=== PATIENT | male | born 1990 | race Caucasian/White ===

== ENCOUNTER → 2016-10-21 | Emergency (ER) | payer BC, OTHER ==
[~2016-10-21] VITALS: Ht 185.4 cm; Wt 97.5 kg
[~2016-10-21] MED LIST: ALPRAZolam 0.25 MG (XANAX) TAB PO ONE; IOHEXOL 350 MG/ML 150 ML (OMNIPAQUE 350) VIAL IV ONE; LAMOTRIGINE; NS 100 ML (IVPB) BAG IV ONE; NS IV 1000 ML 1,000 ML IV ONE
--- NOTE | 2016-10-21 10:22 | ED General ---
General Chief Complaint: General Problems/Pain Stated Complaint: SOA Source of Information: Patient Exam Limitations: No Limitations History of Present Illness Time Seen by Provider: 10:06 Initial Comments Here with report of anxiousness, shortness of breath, chest pain and left arm pain. Does have history of significant anxiety and panic attacks. He's been on a variety of different medicines including benzodiazepines. He's been off of those for a few months now. He does have a seizure disorder as well. 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 They just came in this morning and he is here with a coworker. States that the anxiety started for whatever reason this morning he is not sure. Complains of cramping to his hands and numbness. His extremities with upper greater than lower. Denies nausea or vomiting. Denies sweating. He is calming down after exam. Timing/Duration: 1 Hour Severity: Moderate Associated Systoms: No Nausea/Vomiting Allergies and Home Medications Allergies Coded Allergies: No Known Drug Allergies (Unverified , 10/21/16) Home Medications [Limictal] , (Reported) Constitutional: see HPI, No chills, No fever EENTM: no symptoms reported Respiratory: see HPI, No cough, short of breath, No wheezing Cardiovascular: chest pain, palpitations Gastrointestinal: No abdominal pain, No nausea, No vomiting Genitourinary: no symptoms reported Musculoskeletal: see HPI, other (carpal spasms left greater than right) Skin: no symptoms reported Psychiatric/Neurological: See HPI, Anxiety, Tingling (hands and face) All Other Systems Reviewed Negative Unless Noted: Yes Past Vzgkljz-Yayscc-Zcnwla Hx Patient Social History Alcohol Use: Occasionally Uses Recreational Drug Use: No Smoking Status: Never a Smoker Surgeries HX Surgeries: No Respiratory Hx Respiratory Disorders: No Cardiovascular Hx Cardiac Disorders: No Neurological Hx Neurological Disorders: Yes Neurological Disorders: Seizure Disorder Genitourinary Hx Genitourinary Disorders: No Gastrointestinal Hx Gastrointestinal Disorders: No Musculoskeletal Hx Musculoskeletal Disorders: No Endocrine Hx Endocrine Disorders: No Psychosocial Hx Psychiatric Problems: Yes Behavioral Health Disorders: Anxiety Reviewed Nursing Assessment Reviewed/Agree w Nursing PMH: Yes Family Medical History Significant Family History: No Pertinent Family Hx Physical Exam Vital Signs Vital Sign - Last 12Hours 10/21/16 09:40 Pulse 107 Resp 22 B/P (MAP) 141/81 Pulse Ox 100 O2 Delivery Room Air Capillary Refill : General Appearance: No Apparent Distress, WD/WN HEENT: PERRL/EOMI, Pharynx Normal Neck: Non Tender, Supple Respiratory: Lungs Clear, Normal Breath Sounds, Other (tachypnea quick calms with reassurance.) Cardiovascular: No Murmur, Tachycardia Gastrointestinal: Non Tender, Soft Back: Normal Inspection, No CVA Tenderness, No Vertebral Tenderness Extremity: Normal Range of Motion, Non Tender, Other (Isabella spasms noted to the left hand) Neurologic/Psychiatric: Alert, Oriented x3, Other (anxious) Skin: Normal Color, Warm/Dry Progress/Results/Core Measures Results/Orders Lab Results Laboratory Tests Test 10/21/16 10:30 10/21/16 12:05 Range/Units White Blood Count 13.5 H 4.3-11.0 10^3/uL Red Blood Count 5.15 4.35-5.85 10^6/uL Hemoglobin 16.0 13.3-17.7 G/DL Hematocrit 46 40-54 % Mean Corpuscular Volume 90 80-99 FL Mean Corpuscular Hemoglobin 31 25-34 PG Mean Corpuscular Hemoglobin Concent 35 32-36 G/DL Red Cell Distribution Width 12.6 10.0-14.5 % Platelet Count 294 130-400 10^3/uL Mean Platelet Volume 8.9 7.4-10.4 FL Neutrophils (%) (Auto) 67 42-75 % Lymphocytes (%) (Auto) 21 12-44 % Monocytes (%) (Auto) 13 H 0-12 % Eosinophils (%) (Auto) 0 0-10 % Basophils (%) (Auto) 0 0-10 % Neutrophils # (Auto) 9.0 H 1.8-7.8 X 10^3 Lymphocytes # (Auto) 2.8 1.0-4.0 X 10^3 Monocytes # (Auto) 1.7 H 0.0-1.0 X 10^3 Eosinophils # (Auto) 0.0 0.0-0.3 10^3/uL Basophils # (Auto) 0.0 0.0-0.1 10^3/uL Prothrombin Time 13.2 12.2-14.7 SEC INR Comment 1.0 0.8-1.4 Activated Partial Thromboplast Time 21 L 24-35 SEC D-Dimer 0.82 H 0.00-0.49 UG/ML Sodium Level 139 135-145 MMOL/L Potassium Level 3.0 L 3.6-5.0 MMOL/L Chloride Level 104 98-107 MMOL/L Carbon Dioxide Level 20 L 21-32 MMOL/L Anion Gap 15 H 5-14 MMOL/L Blood Urea Nitrogen 17 7-18 MG/DL Creatinine 1.67 H 0.60-1.30 MG/DL Estimat Glomerular Filtration Rate 50 BUN/Creatinine Ratio 10 Glucose Level 116 H 70-105 MG/DL Calcium Level 10.1 8.5-10.1 MG/DL Magnesium Level 1.8 1.8-2.4 MG/DL Total Bilirubin 0.8 0.1-1.0 MG/DL Aspartate Amino Transf (AST/SGOT) 28 5-34 U/L Alanine Aminotransferase (ALT/SGPT) 21 0-55 U/L Alkaline Phosphatase 67 40-136 U/L Troponin I < 0.30 <0.30 NG/ML Total Protein 7.5 6.4-8.2 G/DL Albumin 4.4 3.2-4.5 G/DL Thyroid Stimulating Hormone (TSH) 3.68 0.35-4.94 UIU/ML Urine Color YELLOW Urine Clarity CLEAR Urine pH 8 5-9 Urine Specific [place] 1.010 L 1.016-1.022 Urine Protein NEGATIVE NEGATIVE Urine Glucose (UA) NEGATIVE NEGATIVE Urine Ketones NEGATIVE NEGATIVE Urine Nitrite NEGATIVE NEGATIVE Urine Bilirubin NEGATIVE NEGATIVE Urine Urobilinogen NORMAL NORMAL MG/DL Urine Leukocyte Esterase NEGATIVE NEGATIVE Urine RBC (Auto) NEGATIVE NEGATIVE Urine RBC NONE /HPF Urine WBC 0-2 /HPF Urine Crystals NONE /LPF Urine Bacteria NEGATIVE /HPF Urine Casts NONE /LPF Urine Mucus SMALL H /LPF Urine Other MOD SPERM H /HPF Urine Culture Indicated NO Urine Opiates Screen NEGATIVE NEGATIVE Urine Oxycodone Screen NEGATIVE NEGATIVE Urine Methadone Screen NEGATIVE NEGATIVE Urine Propoxyphene Screen NEGATIVE NEGATIVE Urine Barbiturates Screen NEGATIVE NEGATIVE Ur Tricyclic Antidepressants Screen NEGATIVE NEGATIVE Urine Phencyclidine Screen NEGATIVE NEGATIVE Urine Amphetamines Screen POSITIVE H NEGATIVE Urine Methamphetamines Screen POSITIVE H NEGATIVE Urine Benzodiazepines Screen NEGATIVE NEGATIVE Urine Cocaine Screen NEGATIVE NEGATIVE Urine Cannabinoids Screen NEGATIVE NEGATIVE My Orders Orders - DENISA YOO MD Cbc With Automated Diff (10/21/16 10:04) Comprehensive Metabolic Panel (10/21/16 10:04) Fibrin Degradation Products (10/21/16 10:04) Drug Screen Stat (Urine) (10/21/16 10:04) Magnesium (10/21/16 10:04) Protime With Inr (10/21/16 10:04) Partial Thromboplastin Time (10/21/16 10:04) Thyroid Stimulating Hormone (10/21/16 10:04) Troponin I (10/21/16 10:04) Ua Culture If Indicated (10/21/16 10:04) Saline Lock/Iv-Start (10/21/16 10:04) Ekg Tracing (10/21/16 10:04) Monitor-Rhythm Ecg Trace Only (10/21/16 10:04) Chest 1 View, Ap/Pa Only (10/21/16 10:04) Saline Lock/Iv-Start (10/21/16 11:54) Ns Iv 1000 Ml (Sodium Chloride 0.9%) (10/21/16 11:54) Ct Angio Chest W (10/21/16 11:54) Iohexol Injection (Omnipaque 350 Mg/Ml 1 (10/21/16 12:45) Ns (Ivpb) (Sodium Chloride 0.9% Ivpb Bag (10/21/16 12:45) Medications Given in ED Current Medications Medications Dose Ordered Sig/Henrik Route Start Time Stop Time Status Last Admin Dose Admin Iohexol 150 ml ONCE ONCE IV 10/21/16 12:45 10/21/16 12:47 DC 10/21/16 12:42 125 ML Sodium Chloride 100 ml ONCE ONCE IV 10/21/16 12:45 10/21/16 12:47 DC 10/21/16 12:42 80 ML Sodium Chloride 1,000 ml @ 0 mls/hr Q0M ONCE IV 10/21/16 11:54 10/21/16 11:55 DC 10/21/16 12:22 1,000 MLS/HR Vital Signs/I&O Vital Sign - Last 12Hours 10/21/16 10/21/16 09:40 10:40 Pulse 107 52 Resp 22 18 B/P (MAP) 141/81 141/92 Pulse Ox 100 99 O2 Delivery Room Air Room Air Progress Note : Progress Note Sinus rhythm with normal axis. No evidence of ST elevation [place]. Nonspecific intraventricular conduction delay. No previous available for comparison. Interpreted by me. 1150: D-dimer slightly elevated. Creatinine is also somewhat elevated. He is a larger male that is muscular and likely this is related to that. I did discuss the creatinine and GFR with the radiologist. We 'll both agree that this will likely be safe to do CT angio of the chest as long as IV fluids are given. Normal saline 1 L bolus ordered. I did discuss this with the patient and he agrees. CT angiogram of the chest ordered. Patient is pain-free currently and in no distress. O2 sat 94 percent on room air with heart rate of 64. ECG Initial ECG Impression Date: Oct 21, 2016 Initial ECG Impression Time: 10:13 Initial ECG Rate: 81 Initial ECG Rhythm: Normal Sinus Comment Sinus rhythm with normal axis. No evidence of ST elevation [place]. Nonspecific intraventricular conduction delay noted. Interpreted by me. Diagnostic Imaging Diagonstic Imaging: Xray Plain Films/CT/US/NM/MRI: chest Comments NAME: NATHAN CRESPO MED REC#: [id number] PT STATUS: REG ER : 1990 PHYSICIAN: DENISA YOO MD ADMIT DATE: 10/21/16/ER Signed Date of Exam: 10/21/16 CHEST 1 VIEW, AP/PA ONLY EXAMINATION: Portable upright radiograph of the chest. INDICATION: Chest pain. FINDINGS: The lungs appear clear. The heart size is normal. No effusion or pneumothorax. Mediastinum and salbador appear unremarkable. IMPRESSION: Unremarkable exam. Dictated by: Dictated on workstation # [id number] Dict: 10/21/16 1048 Trans: 10/21/16 1054 [facility] [id number] Interpreted by: UVALDO COUGHLIN MD Electronically signed by:UVALDO COUGHLIN MD 10/21/16 1054 Diagonstic Imaging: CT Plain Films/CT/US/NM/MRI: chest Comments VIA [facility]. [place], [place] NAME: NATHAN CRESPO MED REC#: [id number] PT STATUS: REG ER : 1990 PHYSICIAN: DENISA YOO MD ADMIT DATE: 10/21/16/ER Draft Date of Exam:10/21/16 CT ANGIO CHEST W PROCEDURE: CT angiography of the chest with contrast. TECHNIQUE: Multiple contiguous axial images were obtained through the chest after uneventful bolus administration of intravenous contrast. Reconstructed CTA MIP acquisitions were also performed. INDICATION: Dyspnea and tachycardia, panic attack. COMPARISON: None. DISCUSSION: No pulmonary embolus identified. The thoracic aorta is normal in caliber and configuration. The pulmonary arteries are normal in caliber. Minimal subsegmental atelectasis is present within the right lung base. Moderate bilateral gynecomastia. No mediastinal, hilar, or axillary adenopathy. The visualized upper abdomen is unremarkable. No acute osseous abnormality identified. IMPRESSION: 1. No pulmonary embolus or other acute abnormality identified within the chest. 2. Moderate gynecomastia. Dictated on workstation # [id number] Dict: 10/21/16 1257 Trans: 10/21/16 1303 [id number] Interpreted by: DERIAN PEOPLES MD Electronically signed by: Departure Impression Impression: Primary Impression: Panic anxiety syndrome Additional Impression: Chest pain Qualified Codes: R07.9 - Chest pain, unspecified Disposition: ADMITTED INPATIENT Condition: Improved Departure-Patient Inst. Decision time for Depature: 13:33 Patient Instructions: Chest Pain (DC), Panic Disorder (DC) Add. Discharge Instructions: All discharge instructions reviewed with patient and/or family. Voiced understanding. Drink plenty of fluids. Eat a normal diet. Avoid medications or things that will increase her anxiety such as caffeine and nicotine. Follow-up with your DrSahara in a few days for recheck. Return for worse pain, fever, vomiting, weakness , breathing problems or other concerns as needed. EDNISA YOO MD Oct 21, 2016 10:22
[2016-10-21 10:40] VITALS: BP 141/92
[2016-10-21 10:40] LABS: BASOPHILS % (AUTO) 0 % (0-10); EOSINOPHILS % (AUTO) 0 % (0-10); LYMPHOCYTES # (AUTO) 2.8 X 10^3 (1.0-4.0); LYMPHOCYTES % (AUTO) 21 % (12-44); MEAN CORPUSCULAR HEMOGLOBIN 31 PG (25-34); MEAN CORPUSCULAR HGB CONC 35 G/DL (32-36); MEAN CORPUSCULAR VOLUME 90 FL (80-99); MEAN PLATELET VOLUME 8.9 FL (7.4-10.4); MONOCYTES # (AUTO) 1.7 X 10^3 (0.0-1.0); MONOCYTES % (AUTO) 13 % (0-12); NEUTROPHILS % (AUTO) 67 % (42-75); PLATELET COUNT 294 10^3/uL (130-400); RED BLOOD COUNT 5.15 10^6/uL (4.35-5.85); RED CELL DISTRIBUTION WIDTH 12.6 % (10.0-14.5); WHITE BLOOD COUNT 13.5 10^3/uL (4.3-11.0)
--- NOTE | 2016-10-21 10:51 | Diagnostic Imaging Report ---
EXAMINATION: Portable upright radiograph of the chest. INDICATION: Chest pain. FINDINGS: The lungs appear clear. The heart size is normal. No effusion or pneumothorax. Mediastinum and salbador appear unremarkable. IMPRESSION: Unremarkable exam. Dictated by: Dictated on workstation # [id number]
[2016-10-21 10:56] LABS: PROTHROMBIN TIME PATIENT 13.2 SEC (12.2-14.7)
[2016-10-21 11:03] LABS: ALANINE AMINOTRANSFERASE 21 U/L (0-55); ALBUMIN 4.4 G/DL (3.2-4.5); ANION GAP 15 MMOL/L (5-14); ASPARTATE AMINO TRANSFERASE 28 U/L (5-34); BILIRUBIN,TOTAL 0.8 MG/DL (0.1-1.0); BLOOD UREA NITROGEN 17 MG/DL (7-18); BUN/CREATININE RATIO 10; CALCIUM 10.1 MG/DL (8.5-10.1); CARBON DIOXIDE 20 MMOL/L (21-32); CHLORIDE 104 MMOL/L (98-107); CREATININE SERUM 1.67 MG/DL (0.60-1.30); GFR ESTIMATED 50; GLUCOSE 116 MG/DL (70-105); MAGNESIUM 1.8 MG/DL (1.8-2.4); SODIUM 139 MMOL/L (135-145); TOTAL PROTEIN 7.5 G/DL (6.4-8.2)
[2016-10-21 11:16] LABS: THYROID STIMULATING HORMONE 3.68 UIU/ML (0.35-4.94); TROPONIN I < 0.30 NG/ML (<0.30)
[2016-10-21 12:16] LABS: BILIRUBIN,URINE NEGATIVE (NEGATIVE); KETONES,URINE NEGATIVE (NEGATIVE); LEUKOCYTE ESTERASE ,URINE NEGATIVE (NEGATIVE); NITRITE,URINE NEGATIVE (NEGATIVE); PH,URINE 8 (5-9); PROTEIN,URINE NEGATIVE (NEGATIVE); UROBILINOGEN,URINE NORMAL (NORMAL)
[2016-10-21 12:27] LABS: WBC,URINE 0-2 /HPF
--- NOTE | 2016-10-21 13:03 | Diagnostic Imaging Report ---
PROCEDURE: CT angiography of the chest with contrast. TECHNIQUE: Multiple contiguous axial images were obtained through the chest after uneventful bolus administration of intravenous contrast. Reconstructed CTA MIP acquisitions were also performed. INDICATION: Dyspnea and tachycardia, panic attack. COMPARISON: None. DISCUSSION: No pulmonary embolus identified. The thoracic aorta is normal in caliber and configuration. The pulmonary arteries are normal in caliber. Minimal subsegmental atelectasis is present within the right lung base. Moderate bilateral gynecomastia. No mediastinal, hilar, or axillary adenopathy. The visualized upper abdomen is unremarkable. No acute osseous abnormality identified. IMPRESSION: 1. No pulmonary embolus or other acute abnormality identified within the chest. 2. Moderate gynecomastia. Dictated by: Dictated on workstation # [id number]
[2016-10-21 13:45] VITALS: BP 163/106
== END | disposition home or self-care (01) ==
LOC: ER 09:43
DX: F41.9 Anxiety disorder, unspecified (principal); R07.9 Chest pain, unspecified; N62 Hypertrophy of breast
CPT/HCPCS: 36415; 71010; 71275; 80053; 80306; 81000; 83735; 84443; 84484; 85025; 85379; 85610; 85730; 93005; 93041; 96360